=== PATIENT | male | born 2000 | race Caucasian/White ===

== ENCOUNTER 2022-12-08 21:30 | Emergency (ER) | payer BC, SELFPAY ==
[2022-12-08 21:34] VITALS: BP 150/95; PULSE 125; RESP 18; TEMP 36.9; O2SAT 97; BMI 36.3
[2022-12-08 22:01] LABS: IDNOW Serial# 08D9AD1C; Strep A Nucleic Acid Negative (Negative)
[2022-12-08 22:32] LABS: Influenza A PCR NEGATIVE (Negative); Influenza B PCR NEGATIVE (Negative); Resp Syncy Virus RNA Qual PCR NEGATIVE (Negative); SARS COV2 PCR INHOUSE NEGATIVE (Negative)
--- NOTE | 2022-12-08 22:36 | ED.GENADULT ---
HPI - General Adult General Chief complaint: Fever Stated complaint: sore throat Time Seen by Provider: 12/08/22 21:52 Source: patient Mode of arrival: ambulatory Limitations: no limitations History of Present Illness HPI narrative: Patient comes to emergency room complaining of 5 days of sore throat, left ear pain. Patient complaining of subjective fever. Patient denies any chest pain or shortness of breath Related Data Allergies Allergy/AdvReac Type Severity Reaction Status Date / Time animal dander Allergy Itchy Eyes Verified 12/08/22 21:40 mite-Dermatophagoides Allergy Itchy Eyes Verified 12/08/22 21:40 farinae, angie [dust mite - [place]] mold Allergy Itchy Eyes Verified 12/08/22 21:40 pollen extracts Allergy Itching Verified 12/08/22 21:40 Review of Systems Review of Systems: Constitutional : No Weight loss, No Fever, No Chills, No Night Sweats, No Fatigue, No Malaise ENT/Mouth : No Hearing loss, complaining of left Ear Pain, No Nasal Congestion, No Sinus Pain, No Hoarseness, complaining of sore throat, No Rhinorrhea, No Swallowing Difficulty Eyes: No Eye Pain, No Swelling, No Redness, No Foreign Body, No Discharge, No Vision Changes Cardiovascular : No Chest Pain, No SOB, No Dyspnea on Exertion, No Orthopnea, No Edema, No Palpitations Respiratory : No Cough, No Sputum, No Wheezing, No Smoke Exposure, No Dyspnea Gastrointestinal : No Nausea, No Vomiting, No Diarrhea, No Constipation, No abdominal Pain, No Hematochezia, No Melena Genitourinary : no irregular bleeding, No Dysuria, No Urinary Frequency, No Hematuria, No Urinary Incontinence, No Urgency, No Flank Pain, No Urinary Flow Changes, No Hesitancy Musculoskeletal : No joint pain, No Myalgias, No Joint Swelling Skin : No Skin Lesions, No rash Neuro : No Weakness, No Numbness, No Paresthesias, No Loss of Consciousness, No Dizziness, No Headache Psych : No Anxiety/Panic, No Depression, No SI/HI/AH/VH, No Social Issues, Heme/Lymph: No Bruising, No Bleeding,No Lymphadenopathy Endocrine : No Polyuria, No Polydipsia, No Temperature Intolerance PMFSH Social History Social History Advance Directives: No Advance Directives Information Provided: No Physical Exam ED Vital Signs: Vital Signs - 24 hr 12/08/22 21:34 Temperature 98.5 F Pulse Rate 125 H Respiratory Rate 18 Blood Pressure 150/95 H Pulse Oximetry 97 Oxygen Delivery Method Room Air BMI result Body Mass Index 36.3 Const Other: Appearance: Alert. Oriented X3. No acute distress. Eyes: Pupils equal, round and reactive to light. ENT: Erythematous oropharynx, no abscess is visualized, Tympanic membranes bilaterally within normal limits, normal ear canals Neck: Normal inspection. Neck supple. No lymph nodes noted. No crepitus CVS: Normal heart rate and rhythm. Pulses normal. Normal S1 and S2 Respiratory: No respiratory distress. Breath sounds normal. No Wheezing. No rales Abdomen: Soft and nontender. No rigidity. No distention. Skin: Skin warm and dry. Normal skin color. Normal skin turgor. Extremities: No lower extremity edema. No Lacerations. No Rash Neuro: Oriented X 3. No motor deficit. No sensory deficit. Moving all extremities. No slurred speech. CN 2 through 12 grossly intact Psych: calm, cooperative, normal affect Medical Decision Making Medical Decision Making MDM Narrative: Patient tested negative for influenza, RSV, COVID and strep -patient was given 1 dose of p.o. Decadron and viscous lidocaine to help with the symptoms. Lab Data Labs: Lab Results 12/08/22 12/08/22 Range/Units 21:44 21:44 Influenza Type A (PCR) NEGATIVE (Negative) Influenza Type B (PCR) NEGATIVE (Negative) RSV RNA Qual (PCR) NEGATIVE (Negative) SARS-CoV-2 RNA (RT-PCR) NEGATIVE (Negative) S. pyogenes GrpA CARRI Negative (Negative) Discharge Plan Discharge Clinical Impression: Viral pharyngitis Patient Disposition: Home, Self-Care Instructions: Pharyngitis (ED) Additional Instructions: Please follow-up with your primary care physician tomorrow. If you have any worsening or new symptoms, please return to the emergency room or call 911
[2022-12-08] MEDS: Lidocaine HCl Viscous 2 % 15 ML SOLUTION MUCOUS MEM (22:50)
[2022-12-08] MEDS: dexAMETHasone sod phosphate 4 MG/ML VIAL 6 MG IVPUSH (22:57)
[2022-12-08 23:40] VITALS: BP 155/94; PULSE 100; RESP 18; TEMP 35.6; O2SAT 99
== END 2022-12-08 23:43 | disposition home or self-care (01) ==
PROVIDERS: Emergency Provider Emergency Medicine
DX: J02.8 Acute pharyngitis due to other specified organisms (principal); R50.9 Fever, unspecified; Z20.822 Contact with and (suspected) exposure to COVID-19; Z20.828 Contact with and (suspected) exposure to other viral communicable diseases; Z79.899 Other long term (current) drug therapy
CPT/HCPCS: 0241U; 87651; 96374; 99284; J1100

== ENCOUNTER 2024-04-28 13:46 | Emergency (ER) | payer BC, SELFPAY ==
[2024-04-28 13:50] VITALS: BP 125/93; PULSE 106; RESP 20; TEMP 37.2; O2SAT 96; BMI 30.7
--- NOTE | 2024-04-28 13:53 | ED.GENADULT ---
HPI - General Adult General Chief complaint: Nausea/Vomiting/Diarrhea Stated complaint: N/V/D after eating raw pork Time Seen by Provider: 04/28/24 14:22 Source: patient and family Mode of arrival: ambulatory Limitations: no limitations History of Present Illness ED Provider: Francois HPI narrative: 24yo M no PMHx c/o N/V/D x5-6 days accidentally ate raw pork Tuesday. Difficulty keeping fluids down having multiple liquid stools per day. No fevers, chills. Denies bloody or coffee ground emesis, bloody stool. Reports he is pooping water now . Denies CP, sob, fevers, chills, headache, vision changes, weakness, abd pain Related Data Previous Rx's ?Medication ?Instructions ?Recorded ondansetron 4 mg disintegrating 4 mg PO Q6H PRN nausea and 04/28/24 tablet vomiting #14 tabs Allergies Allergy/AdvReac Type Severity Reaction Status Date / Time animal dander Allergy Itchy Eyes Verified 04/28/24 13:55 mite-Dermatophagoides Allergy Itchy Eyes Verified 04/28/24 13:55 farinae, angie [dust mite - [place]] mold Allergy Itchy Eyes Verified 04/28/24 13:55 pollen extracts Allergy Itching Verified 04/28/24 13:55 Review of Systems Review of Systems: Yes all other systems are reviewed and are negative [facility] Past Medical History Attestation statement: The following information was validated with the patient. Source: old records reviewed and nursing notes reviewed Social History Social History Smoked in Last 30 Days: No Use of substances other than those prescribed or required for medical reasons: No Advance Directives: No Advance Directives Information Provided: No Do you have a plan to hurt others: No Plan Physical Exam ED Vital Signs: Vital Signs - 24 hr 04/28/24 13:50 04/28/24 16:06 Temperature 98.9 F 97.7 F Pulse Rate 106 H 90 Respiratory Rate 20 18 Blood Pressure 125/93 H 124/86 Pulse Oximetry 96 96 Oxygen Delivery Method Room Air Room Air BMI result Body Mass Index 30.7 VSS Appearance: Alert.? Oriented X3.? No acute distress.? Head: Normocephalic, atraumatic Eyes: Pupils equal, round and reactive to light.? ENT: Dry mucus membranes CVS: Mildly tachycardic to 100-110bpm Pulses normal.? Respiratory: No respiratory distress.? Breath sounds normal.? Abdomen: Soft and nontender.?Active bowel sounds Skin: Skin warm and dry.?Flushed. ? Extremities: No lower extremity edema.? No calf ttp. 5/5 strength to bilateral upper and lower extremities Neuro: Oriented X 3.? No motor deficit.? No sensory deficit. CN 2-12 intact Course Course Course Narrative: RME performed by Leonarda Morales PA-C. Patient is a 24 year old assigned male at presenting to the emergency department with nausea, vomiting, and diarrhea. Patient states 6 days ago he accidentally ingested undercooked pork and has been having nausea, vomiting, diarrhea, and abdominal pain ever since. Detailed physical exam and review of systems are deferred to the attending pathologist. Labs and stool studies ordered. Patient placed back in the waiting room pending room availability and results. Reevaluation(s) Reevaluation #1: CBC no acute findings needing intervention. Potassium 3.1 oral potassium ordered. Patient is getting IV fluids. No other acute findings on chemistry. UA clean no infection. No indication for abdominal skin no abdominal tenderness on exam. Pending stool sample, re-evaluation. Sign out to Alyce SANTANA Time: 15:44 Reevaluation #2: I Donya Collins PA-C have accepted care of the patient had signed out pending reassessment. Patient has had symptoms for 1 week, nausea vomiting diarrhea. It is thought that he perhaps consumed uncooked pork. His labs are unremarkable, there was no leukocytosis, there were no electrolyte abnormalities, he has not had a bowel movement since earlier today, he has been here for 3 hours. He has yet to give a stool sample, given his symptoms have improved over the past week, in the absence of a leukocytosis, or fever, I plan to p.o. challenge now. Time: 16:52 Reevaluation #3: Patient ate drank feels well is eager for discharge Time: 17:03 Medications Administered Discontinued Medications Generic Name Dose Route Start Last Admin Trade Name Freq PRN Reason Stop Dose Admin Sodium Chloride 1,000 mls @ 999 mls/hr 04/28/24 15:00 04/28/24 16:50 Ns IV 04/28/24 16:00 Infused .Q1H1M THEA Infusion Sodium Chloride 1,000 mls @ 999 mls/hr 04/28/24 15:15 04/28/24 16:50 Ns IV 04/28/24 16:15 Infused .Q1H1M THEA Infusion Potassium Chloride 40 meq 04/28/24 14:46 04/28/24 16:50 Potassium Chloride Packet 20 Meq Packet PO 04/28/24 14:47 40 meq ONCE ONE Administration Medical Decision Making Medical Decision Making [facility] Narrative: 24yo M presenting with N/V/D x5-6 days s/p eating raw pork PE: mildly tachycardic to 100-110. Dry mucus membranes. Benign abdominal exam. Hx and PE concerning for dehydration secondary to foodbourne illness. Less likely, cholera, c. diff, obstruction, acute abdomen, appendicitis, diverticulitis, perf, JUDY, hepatitis Plan: labs, stool panel, IV fluids Differential Diagnosis Differential Diagnoses: The differential diagnosis associated with the presentation includes (Hx and PE concerning for dehydration secondary to foodbourne illness. Less likely, cholera, c. diff, obstruction, acute abdomen, appendicitis, diverticulitis, perf, JUDY, hepatitis) Admission/Observation Consideration of admission/observation: Escalation of care including admission/observation considered Unlikely Lab Data [facility] Lab Attestation statement: I reviewed the patient's lab results. 04/28/24 14:06 04/28/24 14:06 Labs: Lab Results 04/28/24 Range/Units 14:06 WBC 8.3 (4.8-10.8) X10*3/uL RBC 5.86 H (4.60-5.80) X10*6/uL Hgb 16.8 (14.0-18.0) g/dl Hct 47.2 (42.0-52.0) % MCV 80.5 (80.0-98.0) fL MCH 28.7 (27.0-33.0) pg MCHC 35.6 (31.0-36.0) g/dl RDW 11.6 (11.0-16.0) % Plt Count 399 (160-400) X10*3/uL MPV 9.2 L (9.4-12.4) fL Immature Gran % (Auto) 0.4 (0.0-0.4) % Neut % (Auto) 56.4 (45-73) % Lymph % (Auto) 30.0 (20-40) % [place] % (Auto) 11.2 H (2-11) % Eos % (Auto) 1.6 (0-4) % Baso % (Auto) 0.4 (0-2) % Lymph # (Auto) 2.5 (1.2-4.9) X10*3/uL [place] # (Auto) 0.9 (0.1-1.2) X10*3/uL Eos # (Auto) 0.1 (0.0-0.4) X10*3/uL Baso # (Auto) 0.0 (0.0-0.2) X10*3/uL Abs Immat Gran (auto) 0.03 (0.00-0.03) X10*3/uL Absolute Neuts (auto) 4.7 (2.0-8.3) x10*3/uL Absolute Nucleated RBC 0.000 (0.0-0.012) X10*3/uL Nucleated RBC % (auto) 0.0 (0.0-0.2) /100WBC Sodium 137 (135-145) mmol/L Potassium 3.1 L (3.3-5.1) mmol/L Chloride 103 (96-108) mmol/L Carbon Dioxide 23 (22-29) mmol/L Anion Gap 14 (12-20) BUN 8 L (9-16) mg/dL Creatinine 0.89 (0.5-1.4) mg/dL Estim Creat Clear Calc 133.8 Estimated GFR > 60 Random Glucose 232 H (60-115) mg/dL Calcium 8.9 (8.4-10.2) mg/dL Magnesium 1.8 (1.6-2.6) mg/dL Total Bilirubin 0.9 (0.0-1.0) mg/dL AST 14 (5-37) U/L ALT 31 (0-40) U/L Alkaline Phosphatase 75 (39-117) U/L Total Protein 7.1 (6.5-8.0) g/dL Albumin 4.1 (3.5-5.0) g/dL Urine Color Yellow Urine Appearance Clear Urine pH 6.0 (5.0-9.0) Ur Specific [place] 1.015 (1.005-1.025) Urine Protein 30 (1+) H (Neg-Trace) mg/dL Urine Glucose (UA) Negative (Negative) mg/dL Urine Ketones Negative (Negative) mg/dL Urine Blood Negative (Negative) Urine Nitrite Negative (Negative) Ur Leukocyte Esterase Negative (Negative) Urine RBC 0-2 (0-2) /HPF Urine WBC 0-5 (0-5) /HPF Ur Squamous Epith Cells 0-2 (0-2) /HPF Urine Bacteria None Seen (None Seen) Hyaline Casts 3-5 (0-2) /LPF Influenza Type A (PCR) NEGATIVE (Negative) Influenza Type B (PCR) NEGATIVE (Negative) RSV RNA Qual (PCR) NEGATIVE (Negative) SARS-CoV-2 RNA (RT-PCR) NEGATIVE (Negative) External Record Review External record reviewed: Outpatient record Chronic Conditions Patient?s care impacted by: Other (obesity ) Critical Care Time Critical Care Time Critical Care Time: Yes Total Critical Care Time: 35 Attestation: I attest to this time spent taking care of the patient, obtaining history, physical, reviewing labs, imaging, treatment of patients condition +/- specialist/hospitalist consult Discharge Plan Discharge Clinical Impression: Food poisoning Patient Disposition: Still a Patient Instructions: Acute Diarrhea (ED), Food Poisoning (ED) Additional Instructions: Take your medications as prescribed. If you were prescribed antibiotics today, it is important that you take your medication to their entirety, do not skip any doses, do not finish them early. Follow-up with your primary care provider this week. Return to the emergency department with new or worsening symptoms. Such as fevers, chills, chest pain, shortness of breath, nausea, vomiting, dizziness, headache, vision changes, lethargy In case of emergency call 911 Prescriptions: New ondansetron 4 mg tablet,disintegrating 4 mg PO Q6H PRN (Reason: nausea and vomiting) Qty: 14 0RF Referrals: Physician,None [Primary Care Provider] - 2 days Stand Alone Forms: Work/School Release Print Language: Luxem[place]ish
[2024-04-28 14:13] LABS: MANUAL DIFF FLAG NO
[2024-04-28 14:14] LABS: Basophils Percent Auto 0.4 % (0-2); Eosinophils Absolute Auto 0.1 X10*3/uL (0.0-0.4); Eosinophils Percent Auto 1.6 % (0-4); Hematocrit 47.2 % (42.0-52.0); Hemoglobin 16.8 g/dl (14.0-18.0); Imm Gran Abs Auto 0.03 X10*3/uL (0.00-0.03); Imm Gran Pct Auto 0.4 % (0.0-0.4); Lymphocytes Absolute Auto 2.5 X10*3/uL (1.2-4.9); Mean Corpuscular HGB Conc 35.6 g/dl (31.0-36.0); Mean Corpuscular Hemoglobin 28.7 pg (27.0-33.0); Mean Corpuscular Volume 80.5 fL (80.0-98.0); Mean Platelet Volume 9.2 fL (9.4-12.4); Monocytes Absolute Auto 0.9 X10*3/uL (0.1-1.2); Monocytes Percent Auto 11.2 % (2-11); Neutrophils Absolute Auto 4.7 x10*3/uL (2.0-8.3); Neutrophils Percent Auto 56.4 % (45-73); Platelet Count 399 X10*3/uL (160-400); Red Blood Count 5.86 X10*6/uL (4.60-5.80); Red Cell Distribution Width 11.6 % (11.0-16.0); White Blood Count 8.3 X10*3/uL (4.8-10.8)
[2024-04-28 14:15] LABS: Appearance Urine Clear; Color Urine Yellow; Glucose Urine UA Negative (Negative); Leukocyte Esterase Urine Negative (Negative); Nitrite Urine Negative (Negative); Specific Gravity - Urine 1.015 (1.005-1.025); UMIC TRIGGER UACC YES; Urine Blood Negative (Negative); Urine Ketones Negative (Negative); Urine Protein 30 (1+) mg/dL (Neg-Trace)
[2024-04-28 14:21] LABS: Bacteria Urine None Seen (None Seen); RBC Urine 0-2 /HPF (0-2); Squamous Epithelial Cell Urine 0-2 /HPF (0-2); WBC Urine 0-5 /HPF (0-5)
[2024-04-28 14:39] LABS: Alanine Aminotransferase 31 U/L (0-40); Albumin Level 4.1 g/dL (3.5-5.0); Alkaline Phosphatase 75 U/L (39-117); Anion Gap 14 (12-20); Aspartate Amino Transferase 14 U/L (5-37); Bilirubin Total 0.9 mg/dL (0.0-1.0); Blood Urea Nitrogen 8 mg/dL (9-16); Calcium 8.9 mg/dL (8.4-10.2); Carbon Dioxide 23 mmol/L (22-29); Chloride 103 mmol/L (96-108); Creatinine Clr Calc Pharmacy 133.8; Estimated Glomerular Filt Rate > 60; Glucose Random 232 mg/dL (60-115); Magnesium 1.8 mg/dL (1.6-2.6); Potassium 3.1 mmol/L (3.3-5.1); Sodium 137 mmol/L (135-145); Total Protein 7.1 g/dL (6.5-8.0)
[2024-04-28] MEDS: 0.9 % Sodium Chloride 1,000 ML 999 ML IV ×2 (15:13)
[2024-04-28 16:03] LABS: Influenza A PCR NEGATIVE (Negative); Influenza B PCR NEGATIVE (Negative); Resp Syncy Virus RNA Qual PCR NEGATIVE (Negative); SARS COV2 PCR INHOUSE NEGATIVE (Negative)
[2024-04-28 16:06] VITALS: BP 124/86; PULSE 90; RESP 18; TEMP 36.5; O2SAT 96
[2024-04-28] MEDS: Potassium Chloride Packet 20 MEQ PACKET 40 MEQ PO (16:50)
[2024-04-28 17:26] VITALS: BP 125/86; PULSE 86; RESP 18; TEMP 36.6; O2SAT 98
[2024-04-28 17:30] VITALS: BP 125/86; PULSE 86; RESP 18; TEMP 36.6; O2SAT 98
== END 2024-04-28 17:30 | disposition home or self-care (01) ==
PROVIDERS: Physician Assistant Medical; Emergency Provider Emergency Medicine
DX: A05.9 Bacterial foodborne intoxication, unspecified (principal); E87.6 Hypokalemia; Z03.818 Encounter for observation for suspected exposure to other biological agents ruled out; R11.2 Nausea with vomiting, unspecified; R19.7 Diarrhea, unspecified
CPT/HCPCS: 0241U; 80053; 81001; 83735; 85025; 96360; 96361; 99284

== ENCOUNTER 2024-09-09 11:24 | Emergency (ER) | payer BC, SELFPAY ==
--- NOTE | ~2024-09-09 | XR_ITS ---
CLINICAL HISTORY: cough 2 view chest x-ray. Comparison: None Findings: The lungs are adequately expanded. No focal consolidation. No effusion or pneumothorax. Cardiac and mediastinal contours are within normal limits. No acute osseous abnormality Impression: No acute process. This document has been electronically signed by: Dre Pastor MD on 09/09/2024 12:50:31
[2024-09-09 11:32] VITALS: BP 116/74; PULSE 100; RESP 18; TEMP 36.4; O2SAT 95; BMI 32.4
--- NOTE | 2024-09-09 11:32 | ED.URI ---
HPI - URI/Sore Throat General Chief Complaint: Upper Respiratory Symptoms Stated Complaint: cough Time Seen by Provider: 09/09/24 12:55 Source: patient, RN notes reviewed and old records reviewed Mode of arrival: ambulatory History of Present Illness ED Provider: Delia Reid PA-C HPI Narrative: 24-year-old male with no significant past medical history presenting to the ED complaining of productive cough, sore throat, fatigue, headache, congestion x4 days. Admits to taking Tylenol and Motrin at home today. Denies recent travel, sick contacts, CP/SOB. Related Data Previous Rx's ?Medication ?Instructions ?Recorded ondansetron 4 mg disintegrating 4 mg PO Q6H PRN nausea and 04/28/24 tablet vomiting #14 tabs Allergies Allergy/AdvReac Type Severity Reaction Status Date / Time animal dander Allergy Itchy Eyes Verified 09/09/24 11:34 mite-Dermatophagoides Allergy Itchy Eyes Verified 09/09/24 11:34 farinae, angie [dust mite - [place]] mold Allergy Itchy Eyes Verified 09/09/24 11:34 pollen extracts Allergy Itching Verified 09/09/24 11:34 Review of Systems Review of Systems: Yes all other systems are reviewed and are negative Constitutional: Constitutional: Reports as per [facility] Past Medical History Attestation statement: The following information was validated with the patient. Source: old records reviewed Social History Social History Advance Directives: Yes Advance Directives Information Provided: Yes Advance Directives on File: No Physical Exam Vital Signs: Vital Signs: Last Vital Signs Temp 97.6 F 09/09/24 13:15 Pulse 100 09/09/24 13:15 Resp 18 09/09/24 13:15 BP 116/74 09/09/24 13:15 Pulse Ox 95 09/09/24 13:15 O2 Del Method Room Air 09/09/24 13:15 BMI result Body Mass Index 32.4 Const: General: cooperative, healthy appearing and no acute distress Orientation/consciousness: patient oriented x3 Limitations: no limitations HEENT: Head: Yes normal to inspection and Yes atraumatic Ears: hearing grossly normal bilaterally General nose exam: Normal external nose present Face and sinus: Yes normal facial exam Throat: Yes tonsils normal, Yes uvula midline, No peritonsillar mass, Yes posterior oropharynx abnormal (Mild erythema. No exudates), No uvula laterally displaced and No uvular edema Eyes: General: appearance normal, both eyes and all related structures EOM: EOMs intact bilaterally Neck: Neck: Yes normal visual inspection and Yes no meningeal signs Resp: Effort & Inspection: normal respiratory effort, no respiratory distress and no stridor Auscultation: clear to auscultation bilaterally, no crackles and no wheezes Cardio: Rate: regular rate Heart sounds: S1 normal heart sound present and S2 normal heart sound present Skin: Rashes: no rashes Wounds: no wounds Neuro: General: patient oriented x3, tone normal and no meningeal signs Cranial nerves: Yes CN's II-XII intact bilaterally Gait exam (Neuro): Normal gait present Extrem: General: Yes normal to inspection Course Course Course Narrative: This is a Rapid Medical Exam performed in triage by Delia Reid PA-C. Full HPI, ROS and PE to be performed by primary ED provider. 24yo M presenting to the ED c/o prod cough, sore throat, fatigue, EASON, congestion x4 days. Took Tylenol & Motrin today. No travel or sick contacts PE: lungs CTA, uvula midline, +posterior oropharyngeal erythema Plan: SARs, rapid strep, CXR -1300--influenza a positive -chest x-ray unremarkable Results discussed with patient including worrisome signs and symptoms and strict return precautions, and when to return to the emergency department. They verbalized understanding and feel safe for discharge at this time. Medical Decision Making Medical Decision Making [facility] Narrative: 24-year-old male with no significant past medical history presenting to the ED complaining of productive cough, sore throat, fatigue, headache, congestion x4 days. On exam vital signs stable NAD, nontoxic appearing posterior oropharyngeal erythema. Uvula midline. No exudates. Lungs CTA. Concern for viral illness. Rule out pneumonia vs bronchitis. No evidence of [employer]/retropharyngeal abscess Plan: Viral testing, rapid strep, CXR Please refer to course for remaining clinical decision making, interpretation of labs/imaging results, and discussions with consultants and/or family members. Differential Diagnosis Differential Diagnoses: The differential diagnosis associated with the presentation includes As above Lab Data [facility] Lab Attestation statement: I reviewed the patient's lab results. Labs: Lab Results 09/09/24 Range/Units 11:42 Influenza Type A (PCR) POSITIVE A (Negative) Influenza Type B (PCR) NEGATIVE (Negative) RSV RNA Qual (PCR) NEGATIVE (Negative) SARS-CoV-2 RNA (RT-PCR) NEGATIVE (Negative) S. pyogenes GrpA CARRI Negative (Negative) Independent Interpretation I performed an independent interpretation of an: Plain X-Ray Radiology Impression Discussion of test interpretation with radiology: I have reviewed the radiologist's reading. External Record Review External record reviewed: Inpatient record, Office record, Outpatient record, Prior outpatient labs, Prior outpatient radiology, Primary care record and Outside ED record Tests considered The following testing was considered but not selected: As above Prescription Management I considered prescription management with: Pain Medication, Antiviral and Antibiotic Chronic Conditions Patient?s care impacted by: Other Social Determinants Patient?s care significantly limited by Social Determinants of Health including: Other Social Determinant of Health Discharge Plan Discharge Clinical Impression: Influenza Patient Disposition: Home, Self-Care Instructions: Influenza (DC) Additional Instructions: You have influenza a No antibiotics are indicated at this time Make sure you are staying hydrated. Drink plenty of fluids. Rest Alternate Tylenol and Motrin at home as needed for body aches and fever Follow-up with your doctor. If symptoms persist or worsen return to the emergency department *If you are a child & not tolerating liquid or urinating for more than 6 hours, or fevers are uncontrolled with medications at home, return to the emergency department* Prescriptions: No Action ondansetron 4 mg tablet,disintegrating 4 mg PO Q6H PRN (Reason: nausea and vomiting) Qty: 14 0RF Referrals: Physician,None [Primary Care Provider] - Stand Alone Forms: Work/School Release Interventions: ED Discharge Assessment Last Done: 09/09/24 13:15 Discharge Date/Time: 09/09/24 13:15 Print Language: Thai
[2024-09-09 11:54] LABS: IDNOW Serial# 58CA691E; Strep A Nucleic Acid Negative (Negative)
[2024-09-09 12:25] LABS: Influenza A PCR POSITIVE (Negative); Influenza B PCR NEGATIVE (Negative); Resp Syncy Virus RNA Qual PCR NEGATIVE (Negative); SARS COV2 PCR INHOUSE NEGATIVE (Negative)
[2024-09-09 13:15] VITALS: BP 116/74; PULSE 100; RESP 18; TEMP 36.4; O2SAT 95
== END 2024-09-09 13:15 | disposition home or self-care (01) ==
PROVIDERS: Physician Assistant; Emergency Provider Emergency Medicine
DX: J10.1 Influenza due to other identified influenza virus with other respiratory manifestations (principal); R05.9 Cough, unspecified; Z03.818 Encounter for observation for suspected exposure to other biological agents ruled out
CPT/HCPCS: 0241U; 71046; 87651; 99282; 99283

== ENCOUNTER → 2024-09-09 11:32 | Outpatient (BNV) | payer BC, SELFPAY | PROVIDERS: Emergency Provider Emergency Medicine; Visit Provider Radiology Vascular & Interventional Radiology | DX: R05.9 Cough, unspecified (principal) | CPT/HCPCS: 71046 ==

== ENCOUNTER 2024-10-11 09:15 | Outpatient (AMB) | payer BC, SELFPAY ==
[2024-10-11 09:25] VITALS: BP 116/72; PULSE 97; RESP 16; TEMP 37.1; O2SAT 99; BMI 32.9
--- NOTE | 2024-10-11 09:25 | A.OFFPC_ITS ---
Vital Signs 10/11/24 09:25 Height 5 ft 7 in Weight 209 lb 12.8 oz BMI 32.9 BP 116/72 Blood Pressure Location Lt brachial Position Sitting Respiration 16 Pulse 97 Pulse Source Pulse Oximeter Temp 98.8 F Temp Source Oral Pulse Oximetry (%) 99 Oxygen Delivery Method Room Air Intake Visit Reasons: establish care Intake Note: Patient is a new patient here to establish care.. Transferring care from [facility]. Medical records have been requested and have been received. Director Cardiovascular Required: No Accompanied by: Self / Same As Patient Allergies animal dander Allergy (Verified 10/11/24 09:56) Itchy Eyes mite-Dermatophagoides farinae, angie [dust mite - [place]] Allergy (Verified 10/11/24 09:56) Itchy Eyes mold Allergy (Verified 10/11/24 09:56) Itchy Eyes pollen extracts Allergy (Verified 10/11/24 09:56) Itching Medication List - Last Reconciled 10/11/24 by MARSHALL Alvares No Known Home Meds Tobacco use date assessed: 10/11/24 Dental Screening Dental Screen Date: 10/11/24 Did you have a dental visit in the last 12 months?: No Did you have a dental problem in the last 6 months where you did not have access to dental care?: No HPI establish care HPI Details Previous PCP: [facility] Last visit: 4 years Last PE:same Specialist: no OBGYN:n/a Past medical history: DM2 Medications: Family HX: Immune deficiency issues mother, DM2 and mental issues that he is not sure about -father Problem: The patient is a 24-year-old male presenting to establish [facility]. He reports that he has a bump on his foot bottom that hurts on and off. He reports that he feels like something is in his throat intermittently. Reports that in times he feels like he wants to throw up but nothing comes up and when he gets the urge to throw up or dry heave there is a salty taste in his mouth. He denies sob, chest pain, heart palpitation or dizziness The patient reports that he has a bump on his foot, bottom that hurts on and off-will xray the foot [facility] Medical History (Updated 10/22/24 @ 08:57 by MARSHALL Alvares) Geographic tongue Atopic eczema Surgical History No pertinent past surgical history Family History Mother Immune deficiency disorder History of shingles Bunion Father Mental health disorder Suicide FH: mental illness Other Mental illness in member of household Type 2 diabetes mellitus Social History Household Members Other:: Mother Housing: House Alcohol intake: current Alcohol intake frequency: holidays/special occasions only Patient Tobacco Use Status: Never used Tobacco e-Cigarette/Vaping Use: Never Used Second Hand Smoke Exposure: No service: No Current occupational status: employed 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 1. Little interest or pleasure in doing things: not at all 2. Feeling down, depressed, or hopeless: not at all 3. Trouble falling or staying asleep, or sleeping too much: not at all 4. Feeling tired or having little energy: not at all 5. Poor appetite or overeating: not at all 6. Feeling bad about yourself - or that you are a failure or have let yourself or your family down: not at all 7. Trouble concentrating on things, such as reading the newspaper or watching television: not at all 8. Moving or speaking so slowly that other people could have noticed. Or the opposite - being so fidgety or restless that you have been moving around a lot more than usual: not at all 9. Thoughts that you would be better off or of hurting yourself in some way: not at all Total score: 0 Depression Screening Interpretation: Negative Depression Screening Done: Yes 72680 - PHQ-9 Billing: Yes Source: Developed by Drs. Ryan Tavarez, Agatha Bermudez, Allen Ayon and colleagues, with an educational davion from [employer]. Thrive Questionnaire Date Thrive assessed: 10/11/24 I am a: Patient What is your living situation today?: I have a steady place to live Within the past 12 months, did the food you bought not last and you didn't have the money to get more?: Never true Within the past 12 months, did you worry whether your food would run out before you got money to buy more?: Never true Do you have trouble paying for medicines?: No Do you have trouble getting transportation to medical appointments?: No Do you have trouble paying your heating and electricity bill?: No Do you have trouble taking care of your child, family member or friend?: No Do you have trouble with day-to-day activities such as bathing, preparing meals, shopping, managing finances, etc.?: No Are you currently unemployed and looking for a job?: No Are you interested in more education?: No Please select the resources that you would like help with: None Currently or been in a relationship where the following occur: No concerns reported THRIVE Score: 0 AUDIT C Alcohol Use Questionnaire (AUDIT-C) 1. How often do you have a drink containing alcohol?: Monthly or less 2. How many drinks containing alcohol do you have on a typical day when you are drinking?: 1 or 2 3. How often do you have six or more drinks on one occasion?: Never Total Score: 1 NATE-7 AMB Questionnaire NATE-7 Date NATE - 7 assessed: 10/11/24 Feeling nervous, anxious, or on edge: 0 = Not at all Not being able to stop or control worryin = Not at all Worrying too much about different things: 0 = Not at all Trouble relaxin = Not at all Being so restless that it is hard to sit still: 0 = Not at all Becoming easily annoyed or irritable: 0 = Not at all Feeling afraid as if something awful might happen: 0 = Not at all Total NATE-7 score (0-4 normal; 5-9 mild; 10-14 moderate; 15-21 severe): 0 Source: Developed by Drs. Ryan Tavarez, Agatha Bermudez, Allen Ayon and colleagues, with an educational davion from [employer]. NATE-7 Assessment Billing NATE-7 Assessment Tool: NATE-7 Assessment 31509 Review of Systems Const Denies headache(s) Eyes Denies loss of vision ENT Denies vertigo, Denies dizziness, Denies headache(s), Reports nasal congestion and Denies sore throat Card Denies chest pain, Denies leg edema and Denies lightheadedness Resp Denies cough, Denies hemoptysis and Denies wheezing GI Denies abdominal pain, Denies melena, Denies constipation, Denies diarrhea and Denies vomiting Denies dysuria, Denies urinary frequency and Denies urinary urgency Musc Denies arthralgias, Denies joint swelling, Denies numbness and Denies tingling Neuro Denies Abnormal speech present, Denies behavioral changes, Denies vertigo, Denies dizziness, Denies headache(s), Denies loss of vision, Denies memory loss, Denies numbness and Denies tingling Psych Denies anxiety, Denies behavioral changes, Denies depression, Denies memory loss and Denies panic attacks Munir/Lymph Denies easy bleeding and Denies easy bruising Aller/Immun Denies wheezing Physical exam (Primary Care) Vital Signs: Last Vital Signs Temp 98.8 F 10/11/24 09:25 Pulse 97 10/11/24 09:25 Resp 16 10/11/24 09:25 BP 116/72 10/11/24 09:25 Pulse Ox 99 10/11/24 09:25 Oxygen Delivery Method Room Air 10/11/24 09:25 BMI result Body Mass Index 32.9 Tobacco/Smoking Status: Tobacco use Status Tobacco use date assessed 10/11/24 10/11/24 09:33 Patient Tobacco Use Status Never used Tobacco 10/11/24 09:35 e-Cigarette/Vaping Use Never Used 10/11/24 09:35 PHQ-9: PHQ-9 Score PHQ-9: Total score 0 10/11/24 10:07 Depression Screening Interpretation: Negative Thrive Assessment: Date of Thrive Assessment Date Thrive assessed 10/11/24 10/11/24 09:38 Currently or been in a relationship where the following occur: No concerns reported Const General: healthy appearing, no acute distress, alert and awake Nutritional Appearance: well nourished Orientation/consciousness: oriented to person, oriented to place and oriented to time HENMT Ears: TM's normal bilaterally General nose exam: Abnormal mucous membranes and turbinates present boggy and erythematous Mouth: tongue abnormal geographic, with white coating and with plaques Throat: Yes posterior oropharynx abnormal and Yes postnasal drainage Eyes Conjunctivae: conjunctivae normal Sclerae: sclerae normal Pupils: Equal, round and reactive pupils present Neck Neck: Yes no lymphadenopathy and Yes no JVD Thyroid: Thyroid normal Carotids: no bruits Resp Effort & Inspection: normal respiratory effort and not tachypneic Auscultation: no crackles, no rales, no rhonchi and no wheezes Cardio Rate: regular rate Rhythm: regular rhythm Heart sounds: no murmurs and normal S1 and S2 GI Palpation (GI): Soft to palpation, nontender, no hepatomegaly and no splenomegaly Auscultation: normal bowel sounds Skin General skin exam: no rashes or lesions noted and dry skin Neuro General: oriented to person, oriented to place and oriented to time Cranial nerves: Yes Equal, round and reactive pupils present Speech: No Abnormal speech present Gait exam (Neuro): Normal gait present Motor exam (neuro): no tremor noted Extrem Right upper extremity: full ROM Left upper extremity: full ROM Right lower extremity: full ROM; no edema Left lower extremity: full ROM; no edema Psych Mental Status: mental status grossly normal Speech and movement: Normal speech and movement present Affect: normal affect Attitude: cooperative Thought process: Normal thought process present Coding Level of Care Code New Pt Level 4 (87145) Diagnoses Rhinosinusitis J32.9 Thrush B37.0 Nasal congestion R09.81 Type 2 diabetes mellitus with other specified complication, without long-term current use of insulin E11.69 Diabetes mellitus type: type 2 Diabetes mellitus [facility] insulin use: without [facility] use Diabetes mellitus complication status: with other specified complication Additional Codes NATE-7 Assessment Billing - NATE-7 Assessment Tool: NATE-7 Assessment 53385 ([id number]) PHQ-9 - 87943 - PHQ-9 Billing: Yes ([id number]) Time Spent (min) 39 Assessment & Plan Assessment & Plan (1) Rhinosinusitis: Code(s): J32.9 - Chronic sinusitis, unspecified Category: Medical Plan: Augmentin bid x 10 days. 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 Panel Fast 10/15/24 Z. - Encounter for general adult medical examination without abnormal findings Lipid Panel 10/15/24 Z. - Encounter for general adult medical examination without abnormal findings Glucose Fasting 10/15/24 Z. - Encounter for general adult medical examination without abnormal findings UA CC w/rflx Micro + Cult 10/15/24 Z. - Encounter for general adult medical examination without abnormal findings TSH reflex Free T4 10/15/24 Z. - Encounter for general adult medical examination without abnormal findings Complete Blood Count Auto Diff 10/15/24 Z. - Encounter for general adult medical examination without abnormal findings Vitamin D 25-OH Total 10/15/24 Z. - Encounter for general adult medical examination without abnormal findings Hemoglobin A1c 10/15/24 Z00.00 - Encounter for general adult medical exa mination without abnormal findings Medications: New fluticasone propionate 50 mcg/actuation administer into each nostril 1 spray intranasal BID 16 grams 0RF R09.81 - Nasal congestion nystatin 6ml orally (swish around mouth and retain for as long as possible before swal lowing four times daily for 14 days 100,000 units PO QID 473 mL 0RF 14 days B37.0 - Candidal stomatitis amoxicillin-pot clavulanate 875-125 mg 1 tab PO BID 20 tabs 0RF 10 days J32.9 - Chronic sinusitis, unspecified Discontinued ondansetron Discontinued Reason: Patient no longer taking 4 mg PO Q6H PRN 14 tabs 0RF nausea and vomiting
== END 2024-10-11 10:34 | disposition home or self-care (01) ==
DX: J32.9 Chronic sinusitis, unspecified (principal); B37.0 Candidal stomatitis; R09.81 Nasal congestion; E11.69 Type 2 diabetes mellitus with other specified complication

== ENCOUNTER → 2024-10-11 09:15 | Outpatient (BNVA) | payer BC, SELFPAY | DX: Z76.89 Persons encountering health services in other specified circumstances (principal); J32.9 Chronic sinusitis, unspecified; B37.0 Candidal stomatitis; R09.81 Nasal congestion; E11.69 Type 2 diabetes mellitus with other specified complication; Z79.84 Long term (current) use of oral hypoglycemic drugs | CPT/HCPCS: 96127 ==

== ENCOUNTER 2024-10-15 06:49 | Outpatient (REF) | payer BC, SELFPAY ==
[2024-10-15 10:11] LABS: Appearance Urine Clear; Color Urine Yellow; Glucose Urine UA >=1000 mg/dL (Negative); Leukocyte Esterase Urine Negative (Negative); Nitrite Urine Negative (Negative); UMIC TRIGGER UACC YES; Urine Blood Negative (Negative); Urine Ketones Negative (Negative); Urine Protein Trace mg/dL (Neg-Trace)
[2024-10-15 10:14] LABS: Bacteria Urine None Seen (None Seen); Hyaline Casts Urine 0-2 /LPF (0-2); RBC Urine 0-2 /HPF (0-2); Squamous Epithelial Cell Urine 0-2 /HPF (0-2); WBC Urine 0-5 /HPF (0-5)
[2024-10-15 10:33] LABS: MANUAL DIFF FLAG NO
[2024-10-15 10:37] LABS: Basophils Percent Auto 0.6 % (0-2); Eosinophils Absolute Auto 0.1 X10*3/uL (0.0-0.4); Eosinophils Percent Auto 1.4 % (0-4); Hematocrit 47.9 % (42.0-52.0); Hemoglobin 16.4 g/dl (14.0-18.0); Imm Gran Abs Auto 0.03 X10*3/uL (0.00-0.03); Imm Gran Pct Auto 0.4 % (0.0-0.4); Lymphocytes Absolute Auto 3.1 X10*3/uL (1.2-4.9); Lymphocytes Percent Auto 42.1 % (20-40); Mean Corpuscular HGB Conc 34.2 g/dl (31.0-36.0); Mean Corpuscular Hemoglobin 28.3 pg (27.0-33.0); Mean Corpuscular Volume 82.7 fL (80.0-98.0); Mean Platelet Volume 9.2 fL (9.4-12.4); Monocytes Absolute Auto 0.5 X10*3/uL (0.1-1.2); Monocytes Percent Auto 6.7 % (2-11); Neutrophils Absolute Auto 3.5 x10*3/uL (2.0-8.3); Neutrophils Percent Auto 48.8 % (45-73); Platelet Count 389 X10*3/uL (160-400); Red Blood Count 5.79 X10*6/uL (4.60-5.80); Red Cell Distribution Width 12.1 % (11.0-16.0); White Blood Count 7.3 X10*3/uL (4.8-10.8)
[2024-10-15 10:56] LABS: Estimated Average Glucose 223 mg/dL; Hemoglobin A1C 332.3026 umol/L; Hemoglobin A1c % 9.4 % (<6.0)
[2024-10-15 11:18] LABS: Alanine Aminotransferase 54 U/L (0-40); Albumin Level 4.5 g/dL (3.5-5.0); Alkaline Phosphatase 79 U/L (39-117); Anion Gap 13 (12-20); Aspartate Amino Transferase 30 U/L (5-37); Bilirubin Total 0.5 mg/dL (0.0-1.0); Blood Urea Nitrogen 11 mg/dL (9-16); Calcium 9.5 mg/dL (8.4-10.2); Carbon Dioxide 25 mmol/L (22-29); Chloride 104 mmol/L (96-108); Cholesterol 198 mg/dL (<200); Estimated Glomerular Filt Rate > 60; Glucose Fasting 201 mg/dL (60-99); HDL Cholesterol 43 mg/dL (>40); LDL Cholesterol Calculated 103 mg/dL (<100); Potassium 3.8 mmol/L (3.3-5.1); Sodium 138 mmol/L (135-145); TSH reflex Free T4 3.42 uIU/mL (0.32-4.0); Total Protein 7.8 g/dL (6.5-8.0); Triglycerides 260 mg/dL (<150); Vitamin D 25-OH Total 49.8 ng/mL (>30)
== END 2024-10-15 06:50 | disposition home or self-care (01) ==
LOC: HO.HMGCLDS 06:49
DX: Z00.00 Encounter for general adult medical examination without abnormal findings (principal); Z13.6 Encounter for screening for cardiovascular disorders; Z13.1 Encounter for screening for diabetes mellitus
CPT/HCPCS: 36415; 80053; 80061; 81001; 82306; 83036; 84443; 85025

== ENCOUNTER 2024-11-22 10:53 | Outpatient (AMB) | payer BC, SELFPAY ==
[2024-11-22 10:56] VITALS: BP 108/76; PULSE 106; RESP 14; TEMP 37.2; O2SAT 97; BMI 33.7
--- NOTE | 2024-11-22 10:56 | MHC.PC.OV ---
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: No Accompanied by: Self / Same As Patient Allergies animal dander Allergy (Verified 11/22/24 11:19) Itchy Eyes mite-Dermatophagoides farinae, angie [dust mite - [place]] Allergy (Verified 11/22/24 11:19) Itchy Eyes mold Allergy (Verified 11/22/24 11:19) Itchy Eyes pollen extracts Allergy (Verified 11/22/24 11:19) Itching Medication List - Last Reconciled 11/22/24 by MARSHALL Alavres No Known Home Meds Tobacco use date assessed: 11/22/24 Dental Screening Dental Screen Date: 11/22/24 Did you have a dental visit in the last 12 months?: No Did you have a dental problem in the last 6 months where you did not have access to dental care?: No Was dental information given to patient?: No HPI annual physical HPI Details The patient is a 24-year-old male that presented for annual physical Dentist: not in awhile Eye: up to date Snellen: Right: Left: Corrected vision: glasses STI screening: Colonoscopy: Pap Smer: PHQ-9: Flu: COVID: x2 Tdap: Given in office today Diet: eats a lot of cabs, breads, mach and cheeze, pizza every day Exercise: little walking on and off The patient is a 24-year-old male presenting for annual physical There is concerns regarding his type 2 diabetes mellitus. He was initially started on Metformin, but discontinued due to intolerable gastrointestinal side effects. His Hemoglobin A1c level is notably elevated at 9.4%, raising concerns for possible complications, including diabetic emergencies. The patient has a dietary pattern high in carbohydrates and sugary drinks, contributing to his glycemic control issues. He is currently not consuming alcohol. Furthermore, the patient presents with nasal symptoms related to allergic rhinitis and oral hygiene problems, which have both been a source of discomfort. He has not engaged in recent dental care, resulting in persistent oral health issues. [facility] Medical History (Updated 11/22/24 @ 17:17 by MARSHALL Alvares) Geographic tongue Atopic eczema Surgical History No pertinent past surgical history Family History Mother Immune deficiency disorder History of shingles Bunion Father Mental health disorder Suicide FH: mental illness Other Mental illness in member of household Type 2 diabetes mellitus Social History Household Members Other:: Mother Housing: House Alcohol intake: current Alcohol intake frequency: holidays/special occasions only Patient Tobacco Use Status: Never used Tobacco e-Cigarette/Vaping Use: Never Used Second Hand Smoke Exposure: No service: No Current occupational status: employed 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 1. Little interest or pleasure in doing things: not at all 2. Feeling down, depressed, or hopeless: not at all 3. Trouble falling or staying asleep, or sleeping too much: not at all 4. Feeling tired or having little energy: not at all 5. Poor appetite or overeating: not at all 6. Feeling bad about yourself - or that you are a failure or have let yourself or your family down: not at all 7. Trouble concentrating on things, such as reading the newspaper or watching television: not at all 8. Moving or speaking so slowly that other people could have noticed. Or the opposite - being so fidgety or restless that you have been moving around a lot more than usual: not at all 9. Thoughts that you would be better off or of hurting yourself in some way: not at all Total score: 0 Depression Screening Interpretation: Negative Depression Screening Done: Yes Source: Developed by Drs. Ryan Tavarez, Agatha Bermudez, Allen Ayon and colleagues, with an educational davion from [employer]. Thrive Questionnaire Date Thrive assessed: 11/22/24 I am a: Patient What is your living situation today?: I have a steady place to live Within the past 12 months, did the food you bought not last and you didn't have the money to get more?: Never true Within the past 12 months, did you worry whether your food would run out before you got money to buy more?: Never true Do you have trouble paying for medicines?: No Do you have trouble getting transportation to medical appointments?: No Do you have trouble paying your heating and electricity bill?: No Do you have trouble taking care of your child, family member or friend?: No Do you have trouble with day-to-day activities such as bathing, preparing meals, shopping, managing finances, etc.?: No Are you currently unemployed and looking for a job?: No Are you interested in more education?: No Please select the resources that you would like help with: None Currently or been in a relationship where the following occur: No concerns reported THRIVE Score: 0 AUDIT C Alcohol Use Questionnaire (AUDIT-C) 1. How often do you have a drink containing alcohol?: Monthly or less 2. How many drinks containing alcohol do you have on a typical day when you are drinking?: 1 or 2 3. How often do you have six or more drinks on one occasion?: Never Total Score: 1 NATE-7 AMB Questionnaire NATE-7 Date NATE - 7 assessed: 11/22/24 Feeling nervous, anxious, or on edge: 0 = Not at all Not being able to stop or control worryin = Not at all Worrying too much about different things: 1 = Several days Trouble relaxin = Not at all Being so restless that it is hard to sit still: 0 = Not at all Becoming easily annoyed or irritable: 0 = Not at all Feeling afraid as if something awful might happen: 0 = Not at all Total NATE-7 score (0-4 normal; 5-9 mild; 10-14 moderate; 15-21 severe): 1 Source: Developed by Drs. Ryan Tavarez, Agatha Bermudez, Allen Ayon and colleagues, with an educational davion from [employer]. Review of Systems Const Denies headache(s) Eyes Denies loss of vision ENT Denies vertigo, Denies dizziness, Denies headache(s), Reports nasal congestion (Intermittent), Denies sore throat and Reports other (White patches on tongue improved, history of geographic tongue) Card Denies chest pain, Denies leg edema and Denies lightheadedness Resp Denies cough, Denies hemoptysis and Denies wheezing GI Denies abdominal pain, Denies melena, Denies constipation, Denies diarrhea and Denies vomiting Denies dysuria, Denies urinary frequency and Denies urinary urgency Musc Denies arthralgias, Denies joint swelling, Denies numbness and Denies tingling Neuro Denies Abnormal speech present, Denies behavioral changes, Denies vertigo, Denies dizziness, Denies headache(s), Denies loss of vision, Denies memory loss, Denies numbness and Denies tingling Psych Denies anxiety, Denies behavioral changes, Denies depression, Denies memory loss and Denies panic attacks Munir/Lymph Denies easy bleeding and Denies easy bruising Aller/Immun Denies wheezing Physical exam (Primary Care) Vital Signs: Last Vital Signs Temp 98.9 F 11/22/24 10:56 Pulse 106 H 11/22/24 10:56 Resp 14 11/22/24 10:56 BP 108/76 11/22/24 10:56 Pulse Ox 97 11/22/24 10:56 Oxygen Delivery Method Room Air 11/22/24 10:56 BMI result Body Mass Index 33.7 Tobacco/Smoking Status: Tobacco use Status Tobacco use date assessed 11/22/24 11/22/24 10:58 Patient Tobacco Use Status Never used Tobacco 11/22/24 10:58 e-Cigarette/Vaping Use Never Used 11/22/24 10:58 PHQ-9: PHQ-9 Score PHQ-9: Total score 0 11/22/24 11:41 Depression Screening Interpretation: Negative Thrive Assessment: Date of Thrive Assessment Date Thrive assessed 11/22/24 11/22/24 10:58 Currently or been in a relationship where the following occur: No concerns reported Const General: healthy appearing, no acute distress, alert and awake Nutritional Appearance: well nourished Orientation/consciousness: oriented to person, oriented to place and oriented to time HENMT Ears: TM's normal bilaterally General nose exam: Normal nasal mucous membranes and turbinates present Eyes Conjunctivae: conjunctivae normal Sclerae: sclerae normal Pupils: Equal, round and reactive pupils present Neck Neck: Yes no lymphadenopathy and Yes no JVD Thyroid: Thyroid normal Carotids: no bruits Resp Effort & Inspection: normal respiratory effort and not tachypneic Auscultation: no crackles, no rales, no rhonchi and no wheezes Cardio Rate: regular rate Rhythm: regular rhythm Heart sounds: no murmurs and normal S1 and S2 GI Palpation (GI): Soft to palpation, nontender, no hepatomegaly and no splenomegaly Auscultation: normal bowel sounds Skin General skin exam: no rashes or lesions noted and dry skin Neuro General: oriented to person, oriented to place and oriented to time Cranial nerves: Yes Equal, round and reactive pupils present Speech: No Abnormal speech present Gait exam (Neuro): Normal gait present Motor exam (neuro): no tremor noted Extrem Right upper extremity: full ROM Left upper extremity: full ROM Right lower extremity: full ROM; no edema Left lower extremity: full ROM; no edema Psych Mental Status: mental status grossly normal Speech and movement: Normal speech and movement present Affect: normal affect Attitude: cooperative Thought process: Normal thought process present Immunizations Boostrix Tdap 2.5 Lf unit-8 mcg-5 Lf/0.5 mL intramuscular syringe Performing Provider: MARSHALL Alvares [facility] Administered by: Franny Damon CMA on 11/22/24 11:47 Dose Route Admin Location Dispensed Lot Number Expiration Date [facility] Conference Reservationist 0.5 mL IM Left Deltoid 0.5 mL [id number] 03/19/27 11913-148-66 [employer] VIS Given Date VIS Provided VIS Publication Date 11/22/24 Single Vaccine 24 Eligibility Eligibility Date Funding Source Not [facility] Eligible 11/22/24 Private Results Reviewed Results Reviewed: Laboratory Tests 10/15/24 06:57 WBC 7.3 RBC 5.79 Hgb 16.4 Hct 47.9 MCV 82.7 MCH 28.3 Plt Count 389 MPV 9.2 L Sodium 138 Potassium 3.8 D Chloride 104 Carbon Dioxide 25 Anion Gap 13 BUN 11 Creatinine 0.79 Estimated GFR > 60 Fasting Glucose 201 H Estimat Average Glucose 223 Hemoglobin A1c % 9.4 H Calcium 9.5 D Total Bilirubin 0.5 AST 30 ALT 54 H Alkaline Phosphatase 79 Total Protein 7.8 Albumin 4.5 Triglycerides 260 H Cholesterol 198 LDL Cholesterol, Calc 103 H HDL Cholesterol 43 25-OH Vitamin D Total 49.8 TSH 3.42 Urine Color Yellow Urine Appearance Clear Urine pH 6.0 Ur Specific [place] 1.020 Urine Protein Trace Urine Glucose (UA) >=1000 H Urine Ketones Negative Urine Blood Negative Urine Nitrite Negative Ur Leukocyte Esterase Negative Urine RBC 0-2 Urine WBC 0-5 Ur Squamous Epith Cells 0-2 Urine Bacteria None Seen Hyaline Casts 0-2 Coding Level of Care Code Est Pt Prev Care [id number]([id number]) Diagnoses Annual physical exam Z00.00 Type 2 diabetes mellitus with other specified complication, without long-term current use of insulin E11.69 Diabetes mellitus type: type 2 Diabetes mellitus long-term insulin use: without intermediate project manager use Diabetes mellitus complication status: with other specified complication Mixed hypercholesterolemia and hypertriglyceridemia E78.2 Elevated liver enzymes R74.8 Seasonal allergic rhinitis due to pollen J30.1 Allergic rhinitis trigger: pollen Allergic rhinitis seasonality: seasonal Time Spent (min) 36 Assessment & Plan Assessment & Plan (1) Annual physical exam: Code(s): Z00.00 - Encounter for general adult medical examination without abnormal findings Category: Medical (2) Diabetes: Code(s): E11.9 - Type 2 diabetes mellitus without complications Category: Medical Qualifiers: Diabetes mellitus type: type 2 Diabetes mellitus intermediate project manager insulin use: without intermediate project manager use Diabetes mellitus complication status: with other specified complication Qualified Code(s): E11.69 - Type 2 diabetes mellitus with other specified complication (3) Mixed hypercholesterolemia and hypertriglyceridemia: Code(s): E78.2 - Mixed hyperlipidemia Category: Medical (4) Elevated liver enzymes: Code(s): R74.8 - Abnormal levels of other serum enzymes Category: Medical (5) Allergic rhinitis: Code(s): J30.9 - Allergic rhinitis, unspecified Category: Medical Qualifiers: Allergic rhinitis trigger: pollen Allergic rhinitis seasonality: seasonal Qualified Code(s): J30.1 - Allergic rhinitis due to pollen Plan Switch the patient to Metformin extended-release to address diarrhea and improve compliance. He will take 2000 mg four 500 mg tablets) once daily, observing any side effects and monitoring blood sugar with follow-up in three months. Reinforce importance of dietary changes to control elevated A1c and mild hypertriglyceridemia. Recommend increased physical activity. For allergic rhinitis, control allergens in the workplace environment. Advise on dental hygiene and regular check-ups. Vaccination status reviewed with the suggested Tdap which was given in office. ALT slightly elevated refrain from acetaminophen or alcohol. We will recheck labs in 3 months. Discussed with the patient to contact office if he is unable to tolerate metformin XR, so another medication could be tried. Patient was informed and verbally consented to the use of an ambient scribe for clinic note documentation during this visit. Orders: Orders Lipid Panel 3 Months . - Type 2 diabetes mellitus with other specified complication, E78.2 - Mixed hyperlipidemia, R74.8 - Abnormal levels of other serum enzymes, Z00.00 - Encounter for general adult medical examination without abnormal findings Vitamin D 25-OH Total 3 Months . - Type 2 diabetes mellitus with other specified complication, E78.2 - Mixed hyperlipidemia, R74.8 - Abnormal levels of other serum enzymes, Z00.00 - Encounter for general adult medical examination without abnormal findings Complete Blood Count Auto Diff 3 Months . - Type 2 diabetes mellitus with other specified complication, E78.2 - Mixed hyperlipidemia, R74.8 - Abnormal levels of other serum enzymes, Z00.00 - Encounter for general adult medical examination without abnormal findings TDaP Immunization Today Z23 - Encounter for immunization Glucose Fasting 3 Months . - Type 2 diabetes mellitus with other specified complication, E78.2 - Mixed hyperlipidemia, R74.8 - Abnormal levels of other serum enzymes, Z00.00 - Encounter for general adult medical examination without abnormal findings Hemoglobin A1c 3 Months . - Type 2 diabetes mellitus with other specified complication, E78.2 - Mixed hyperlipidemia, R74.8 - Abnormal levels of other serum enzymes, Z00.00 - Encounter for general adult medical examination without abnormal findings Comprehensive [place]. Panel Fast 3 Months . - Type 2 diabetes mellitus with other specified complication, E78.2 - Mixed hyperlipidemia, R74.8 - Abnormal levels of other serum enzymes, Z00.00 - Encounter for general adult medical examination without abnormal findings UA CC w/rflx Micro + Cult 3 Months . - Type 2 diabetes mellitus with other specified complication, E78.2 - Mixed hyperlipidemia, R74.8 - Abnormal levels of other serum enzymes, Z00.00 - Encounter for general adult medical examination without abnormal findings TSH reflex Free T4 3 Months . - Type 2 diabetes mellitus with other specified complication, E78.2 - Mixed hyperlipidemia, R74.8 - Abnormal levels of other serum enzymes, Z00.00 - Encounter for general adult medical examination without abnormal findings Medications: New metformin ER 2,000 mg (4 x 500 mg) PO DAILY 30 days 120 tabs 3RF Patient Instructions: - Take Metformin extended-release 2000 mg once daily as prescribed. - Monitor blood sugar levels regularly and report any issues. - Follow a diet low in carbohydrates and sugars. - Increase physical activity, starting with regular walking. - Schedule dental check-ups for better oral hygiene. - Control allergens in the workplace to minimize rhinitis symptoms. - Follow up with labs and return for a check-up in three months.
== END 2024-11-22 11:51 | disposition home or self-care (01) ==
LOC: HO.HMCH 10:54
DX: Z00.00 Encounter for general adult medical examination without abnormal findings (principal); E11.69 Type 2 diabetes mellitus with other specified complication; E78.2 Mixed hyperlipidemia; R74.8 Abnormal levels of other serum enzymes; J30.1 Allergic rhinitis due to pollen; Z23 Encounter for immunization

== ENCOUNTER → 2024-11-22 10:53 | Outpatient (BNVA) | payer BC, SELFPAY | DX: Z00.00 Encounter for general adult medical examination without abnormal findings (principal); Z23 Encounter for immunization; E11.69 Type 2 diabetes mellitus with other specified complication; E78.2 Mixed hyperlipidemia; R74.8 Abnormal levels of other serum enzymes; J30.1 Allergic rhinitis due to pollen | CPT/HCPCS: 90471; 90715; 96127 ==

== ENCOUNTER 2025-02-19 07:45 | Outpatient (REF) | payer BC, SELFPAY ==
[2025-02-19 10:14] LABS: MANUAL DIFF FLAG NO
[2025-02-19 10:18] LABS: Hematocrit 43.5 % (42.0-52.0); Hemoglobin 15.1 g/dl (14.0-18.0); Imm Gran Abs Auto 0.03 X10*3/uL (0.00-0.03); Imm Gran Pct Auto 0.3 % (0.0-0.4); Lymphocytes Absolute Auto 3.0 X10*3/uL (1.2-4.9); Mean Corpuscular HGB Conc 34.7 g/dl (31.0-36.0); Mean Corpuscular Hemoglobin 28.4 pg (27.0-33.0); Mean Corpuscular Volume 81.9 fL (80.0-98.0); NRBC Abs Auto 0.000 X10*3/uL (0.0-0.012); NRBC Pct Auto 0.0 /100WBC (0.0-0.2); Platelet Count 344 X10*3/uL (160-400); Red Blood Count 5.31 X10*6/uL (4.60-5.80); White Blood Count 9.2 X10*3/uL (4.8-10.8)
[2025-02-19 10:27] LABS: Hemoglobin A1C 249.4760 umol/L; Total Hemoglobin (HGBA1C) 4010.6517 umol/L
[2025-02-19 11:01] LABS: Alanine Aminotransferase 58 U/L (0-40); Albumin Level 4.9 g/dL (3.5-5.0); Alkaline Phosphatase 81 U/L (39-117); Anion Gap 13 (12-20); Aspartate Amino Transferase 36 U/L (5-37); Blood Urea Nitrogen 16 mg/dL (9-16); Calcium 9.6 mg/dL (8.4-10.2); Carbon Dioxide 24 mmol/L (22-29); Chloride 104 mmol/L (96-108); Cholesterol 159 mg/dL (<200); Estimated Glomerular Filt Rate > 60; HDL Cholesterol 42 mg/dL (>40); Potassium 4.1 mmol/L (3.3-5.1); Sodium 137 mmol/L (135-145); Total Protein 7.9 g/dL (6.5-8.0); Triglycerides 233 mg/dL (<150)
[2025-02-19 11:19] LABS: Appearance Urine Clear; Glucose Urine UA Negative (Negative); PH 5.5 (5.0-9.0); Specific Gravity - Urine 1.020 (1.005-1.025)
== END 2025-02-19 07:46 | disposition home or self-care (01) ==
LOC: HO.HMGCLDS 07:45
DX: Z00.00 Encounter for general adult medical examination without abnormal findings (principal); E11.69 Type 2 diabetes mellitus with other specified complication; E78.2 Mixed hyperlipidemia; R74.8 Abnormal levels of other serum enzymes
CPT/HCPCS: 36415; 80053; 80061; 81003; 82306; 83036; 84443; 85025

== ENCOUNTER 2025-02-26 11:15 | Outpatient (AMB) | payer BC, SELFPAY ==
--- NOTE | 2025-02-26 11:26 | MHC.PC.OV ---
Vital Signs 02/26/25 11:27 Height 5 ft 7 in Weight 219 lb BMI 34.3 BP 130/70 Blood Pressure Location Lt brachial Position Sitting Respiration 18 Pulse 97 Pulse Source Pulse Oximeter Temp 97 F Temp Source Temporal Artery Scan Pulse Oximetry (%) 96 Oxygen Delivery Method Room Air Intake Visit Reasons: DM/HLD Associate Justice Required: No Accompanied by: Self / Same As Patient Allergies animal dander Allergy (Verified 03/25/25 02:18) Itchy Eyes mite-Dermatophagoides farinae, angie (dust mite - [place]) Allergy (Verified 03/25/25 02:18) Itchy Eyes mold Allergy (Verified 03/25/25 02:18) Itchy Eyes pollen extracts Allergy (Verified 03/25/25 02:18) Itching Pork/Porcine Containing Products Adverse Reaction (Severe, Verified 03/25/25 02:18) Vomiting Medication List - Last Reconciled 03/25/25 by MARSHALL Alvares empagliflozin (Jardiance) 10 mg PO DAILY metformin ER 2,000 mg (4 x 500 mg) PO DAILY 30 days Tobacco use date assessed: 02/26/25 Dental Screening Dental Screen Date: 02/26/25 Did you have a dental visit in the last 12 months?: Yes Did you have a dental problem in the last 6 months where you did not have access to dental care?: No Was dental information given to patient?: Patient has dentist HPI DM/HLD HPI Details The patient is a 24-year-old male presenting for follow-up on hyperglycemia management and evaluation of elevated liver enzymes. The patient has been managing hyperglycemia with metformin, reporting a decrease A1c levels from 9.4 to 7.8%. He has made dietary changes, including eliminating juice and soda, and increasing water intake to two liters daily. The patient has experienced episodes of vomiting, during which he did not take metformin, as advised due to dehydration concerns. The patient reports elevated liver enzymes, though he is asymptomatic with no abdominal pain. He has a sensation of a bruise on the right side, which occurs intermittently without associated pain. The patient has a history of dental caries, having recently undergone a root canal and cap placement. He is scheduled for further dental procedures, including deep cleaning and additional fillings. The patient reports previous foot pain, which has resolved with a change in footwear. He still plans to consult with podiatry due to concerns about joint-related bubbles. 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 [facility] Medical History Geographic tongue Atopic eczema Surgical History No pertinent past surgical history Family History Mother Immune deficiency disorder History of shingles Bunion Father Mental health disorder Suicide FH: mental illness Other Mental illness in member of household Type 2 diabetes mellitus Social History Household Members Other:: Mother Housing: House Alcohol intake: current Alcohol intake frequency: holidays/special occasions only Patient Tobacco Use Status: Never used Tobacco e-Cigarette/Vaping Use: Never Used Second Hand Smoke Exposure: No service: No Current occupational status: employed 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 1. Little interest or pleasure in doing things: not at all 2. Feeling down, depressed, or hopeless: not at all 3. Trouble falling or staying asleep, or sleeping too much: not at all 4. Feeling tired or having little energy: not at all 5. Poor appetite or overeating: not at all 6. Feeling bad about yourself - or that you are a failure or have let yourself or your family down: not at all 7. Trouble concentrating on things, such as reading the newspaper or watching television: not at all 8. Moving or speaking so slowly that other people could have noticed. Or the opposite - being so fidgety or restless that you have been moving around a lot more than usual: not at all 9. Thoughts that you would be better off or of hurting yourself in some way: not at all Total score: 0 Depression Screening Interpretation: Negative Depression Screening Done: Yes Source: Developed by Drs. Ryan Tavarez, Agatha BermudezAllen and colleagues, with an educational davion from [employer]. Thrive Questionnaire Date Thrive assessed: 02/26/25 I am a: Patient What is your living situation today?: I have a steady place to live Within the past 12 months, did the food you bought not last and you didn't have the money to get more?: Never true Within the past 12 months, did you worry whether your food would run out before you got money to buy more?: Never true Do you have trouble paying for medicines?: No Do you have trouble getting transportation to medical appointments?: No Do you have trouble paying your heating and electricity bill?: No Do you have trouble taking care of your child, family member or friend?: No Do you have trouble with day-to-day activities such as bathing, preparing meals, shopping, managing finances, etc.?: No Are you currently unemployed and looking for a job?: No Are you interested in more education?: No Please select the resources that you would like help with: None Currently or been in a relationship where the following occur: No concerns reported THRIVE Score: 0 AUDIT C Alcohol Use Questionnaire (AUDIT-C) 1. How often do you have a drink containing alcohol?: Never 3. How often do you have six or more drinks on one occasion?: Never Total Score: 0 NATE-7 AMB Questionnaire NATE-7 Date NATE - 7 assessed: 02/26/25 Feeling nervous, anxious, or on edge: 0 = Not at all Not being able to stop or control worryin = Not at all Worrying too much about different things: 1 = Several days Trouble relaxin = Not at all Being so restless that it is hard to sit still: 0 = Not at all Becoming easily annoyed or irritable: 0 = Not at all Feeling afraid as if something awful might happen: 0 = Not at all Total NATE-7 score (0-4 normal; 5-9 mild; 10-14 moderate; 15-21 severe): 1 Source: Developed by Drs. Ryan Tavarez, Allen Khoury and colleagues, with an educational davion from [employer]. Review of Systems Const Denies body aches, Denies chills, Denies fever(s), Denies headache(s) and Denies poor appetite Eyes Reports no additional complaints ENT Denies dysphagia, Denies dizziness, Denies headache(s) and Denies odynophagia Card Denies chest pain, Denies syncope, Denies edema, Denies irregular heart rhythm, Denies lightheadedness and Denies dyspnea Resp Denies cough and Denies dyspnea GI Denies abdominal pain, Denies constipation, Denies dysphagia, Denies diarrhea, Denies nausea, Denies odynophagia and Denies vomiting Reports no additional complaints Musc Reports no additional complaints and Denies abnormal gait Skin/Breast Reports system reviewed and no additional complaints, except as documented Neuro Denies abnormal gait, Denies dizziness, Denies syncope and Denies headache(s) Psych Reports no additional complaints Physical exam (Primary Care) Vital Signs: Last Vital Signs Temp 97 F 02/26/25 11:27 Pulse 97 02/26/25 11:27 Resp 18 02/26/25 11:27 BP 130/70 02/26/25 11:27 Pulse Ox 96 02/26/25 11:27 Oxygen Delivery Method Room Air 02/26/25 11:27 BMI result Body Mass Index 34.3 Tobacco/Smoking Status: Tobacco use Status Tobacco use date assessed 02/26/25 02/26/25 11:34 Patient Tobacco Use Status Never used Tobacco 02/26/25 11:34 e-Cigarette/Vaping Use Never Used 02/26/25 11:34 PHQ-9: PHQ-9 Score PHQ-9: Total score 0 02/26/25 11:45 Depression Screening Interpretation: Negative Thrive Assessment: Date of Thrive Assessment Date Thrive assessed 02/26/25 02/26/25 11:34 Currently or been in a relationship where the following occur: No concerns reported Const General: cooperative, healthy appearing, comfortable and no acute distress Orientation/consciousness: patient oriented x3 HENMT Head: Yes normocephalic Ears: hearing grossly normal bilaterally General nose exam: Normal external nose present Eyes General: appearance normal, both eyes and all related structures Conjunctivae: conjunctivae normal Neck Neck: Yes full ROM and Yes no lymphadenopathy Resp Effort & Inspection: normal respiratory effort Auscultation: clear to auscultation bilaterally, no crackles, no rales, no rhonchi and no wheezes Cardio Rate: regular rate Rhythm: regular rhythm Skin General skin exam: no rashes or lesions noted Neuro General: patient oriented x3 Gait exam (Neuro): Normal gait present Extrem General: Yes normal to inspection, Yes full ROM and No edema Psych Affect: normal affect Attitude: cooperative Insight: Good insight present (Psych) Judgement: Good judgement present (Psych) Results Reviewed Results Reviewed: Laboratory Tests 02/19/25 08:08 WBC 9.2 RBC 5.31 Hgb 15.1 Hct 43.5 MCV 81.9 MCH 28.4 MCHC 34.7 RDW 12.2 Plt Count 344 Sodium 137 Potassium 4.1 Chloride 104 Carbon Dioxide 24 Anion Gap 13 BUN 16 Creatinine 0.76 Estimated GFR > 60 Fasting Glucose 138 H Estimat Average Glucose 177 Hemoglobin A1c % 7.8 H Calcium 9.6 Total Bilirubin 0.4 AST 36 ALT 58 H Alkaline Phosphatase 81 Total Protein 7.9 Albumin 4.9 Triglycerides 233 H Cholesterol 159 LDL Cholesterol, Calc 71 HDL Cholesterol 42 25-OH Vitamin D Total 56.4 TSH 2.97 Urine Color Yellow Urine Appearance Clear Urine pH 5.5 Ur Specific Merna 1.020 Urine Protein Negative Urine Glucose (UA) Negative Urine Ketones Negative Urine Blood Negative Urine Nitrite Negative Ur Leukocyte Esterase Negative Coding Level of Care Code Est Pt Level 3 (99084) Diagnoses Mixed hypercholesterolemia and hypertriglyceridemia E78.2 Type 2 diabetes mellitus with other specified complication, without long-term current use of insulin E11.69 Diabetes mellitus type: type 2 Diabetes mellitus assistant terminal manager insulin use: without penitentiary use Diabetes mellitus complication status: with other specified complication Seasonal allergic rhinitis due to pollen J30.1 Allergic rhinitis trigger: pollen Allergic rhinitis seasonality: seasonal Elevated liver enzymes R74.8 Ramos neuroma of both feet G57.63 Time Spent (min) 34 Assessment & Plan Assessment & Plan (1) Mixed hypercholesterolemia and hypertriglyceridemia: Code(s): E78.2 - Mixed hyperlipidemia Category: Medical (2) Diabetes: Code(s): E11.9 - Type 2 diabetes mellitus without complications Category: Medical Qualifiers: Diabetes mellitus type: type 2 Diabetes mellitus penitentiary insulin use: without assistant terminal manager use Diabetes mellitus complication status: with other specified complication Qualified Code(s): E11.69 - Type 2 diabetes mellitus with other specified complication (3) Allergic rhinitis: Code(s): J30.9 - Allergic rhinitis, unspecified Category: Medical Qualifiers: Allergic rhinitis trigger: pollen Allergic rhinitis seasonality: seasonal Qualified Code(s): J30.1 - Allergic rhinitis due to pollen (4) Elevated liver enzymes: Code(s): R74.8 - Abnormal levels of other serum enzymes Category: Medical (5) Ramos neuroma of both feet: Code(s): G57.63 - Lesion of plantar nerve, bilateral lower limbs Category: Medical Plan The patient will continue with metformin for hyperglycemia management, with a focus on maintaining dietary changes such as eliminating juice and soda and increasing water intake. Regular monitoring of fasting glucose levels will be conducted to ensure continued improvement. Jardiance 10 mg daily added to regimen. For the elevated liver enzymes, further laboratory tests will be ordered to monitor the levels, and an abdominal ultrasound may be considered if symptoms develop. The patient is advised to continue dietary modifications to support liver health. The patient is encouraged to follow up with podiatry for further evaluation of joint-related concerns despite the resolution of foot pain with footwear change. Regarding dental health, the patient will proceed with scheduled dental procedures, including deep cleaning and fillings. The patient is advised to avoid pork due to the intolerance causing gastrointestinal symptoms. Patient was informed and verbally consented to the use of an ambient scribe for clinic note documentation during this visit. Orders: Orders Comprehensive [place]. Panel Fast 3 Months E78.2 - Mixed hyperlipidemia, E11.69 - Type 2 diabetes mellitus with other specified complication, J30.1 - Allergic rhinitis due to pollen, R74.8 - Abnormal levels of other serum enzymes Lipid Panel 3 Months E78.2 - Mixed hyperlipidemia, E11.69 - Type 2 diabetes mellitus with other specified complication, J30.1 - Allergic rhinitis due to pollen, R74.8 - Abnormal levels of other serum enzymes TSH reflex Free T4 3 Months E78.2 - Mixed hyperlipidemia, E11.69 - Type 2 diabetes mellitus with other specified complication, J30.1 - Allergic rhinitis due to pollen, R74.8 - Abnormal levels of other serum enzymes Hemoglobin A1c 3 Months E78.2 - Mixed hyperlipidemia, E11.69 - Type 2 diabetes mellitus with other specified complication, J30.1 - Allergic rhinitis due to pollen, R74.8 - Abnormal levels of other serum enzymes Complete Blood Count Auto Diff 3 Months E78.2 - Mixed hyperlipidemia, E11.69 - Type 2 diabetes mellitus with other specified complication, J30.1 - Allergic rhinitis due to pollen, R74.8 - Abnormal levels of other serum enzymes UA CC w/rflx Micro + Cult 3 Months E78.2 - Mixed hyperlipidemia, E11.69 - Type 2 diabetes mellitus with other specified complication, J30.1 - Allergic rhinitis due to pollen, R74.8 - Abnormal levels of other serum enzymes Medications: New empagliflozin (Jardiance) 10 mg PO DAILY 90 tabs 3RF
[2025-02-26 11:27] VITALS: BP 130/70; PULSE 97; RESP 18; TEMP 36.1; O2SAT 96; BMI 34.3
== END 2025-02-26 11:57 | disposition home or self-care (01) ==
LOC: HO.HMCH 11:16
DX: E78.2 Mixed hyperlipidemia (principal); E11.69 Type 2 diabetes mellitus with other specified complication; J30.1 Allergic rhinitis due to pollen; R74.8 Abnormal levels of other serum enzymes; G57.63 Lesion of plantar nerve, bilateral lower limbs

== ENCOUNTER 2025-05-28 07:46 | Outpatient (REF) | payer BC, SELFPAY ==
[2025-05-28 10:36] LABS: MANUAL DIFF FLAG NO
[2025-05-28 10:38] LABS: Appearance Urine Clear; Glucose Urine UA >=1000 mg/dL (Negative); PH 5.5 (5.0-9.0); Specific Gravity - Urine 1.010 (1.005-1.025); UMIC TRIGGER UACC YES
[2025-05-28 10:41] LABS: Hematocrit 48.4 % (42.0-52.0); Hemoglobin 16.3 g/dl (14.0-18.0); Imm Gran Abs Auto 0.02 X10*3/uL (0.00-0.03); Imm Gran Pct Auto 0.3 % (0.0-0.4); Lymphocytes Absolute Auto 3.2 X10*3/uL (1.2-4.9); Mean Corpuscular HGB Conc 33.7 g/dl (31.0-36.0); Mean Corpuscular Hemoglobin 28.2 pg (27.0-33.0); Mean Corpuscular Volume 83.7 fL (80.0-98.0); NRBC Abs Auto 0.000 X10*3/uL (0.0-0.012); NRBC Pct Auto 0.0 /100WBC (0.0-0.2); Platelet Count 325 X10*3/uL (160-400); Red Blood Count 5.78 X10*6/uL (4.60-5.80); White Blood Count 8.0 X10*3/uL (4.8-10.8)
[2025-05-28 11:08] LABS: Alanine Aminotransferase 78 U/L (0-40); Albumin Level 4.9 g/dL (3.5-5.0); Alkaline Phosphatase 64 U/L (39-117); Anion Gap 10 (12-20); Aspartate Amino Transferase 44 U/L (5-37); Blood Urea Nitrogen 17 mg/dL (9-16); Calcium 9.1 mg/dL (8.4-10.2); Carbon Dioxide 27 mmol/L (22-29); Chloride 104 mmol/L (96-108); Cholesterol 200 mg/dL (<200); Estimated Glomerular Filt Rate > 60; HDL Cholesterol 46 mg/dL (>40); Potassium 3.4 mmol/L (3.3-5.1); Sodium 138 mmol/L (135-145); Total Protein 7.7 g/dL (6.5-8.0); Triglycerides 123 mg/dL (<150)
== END 2025-05-28 07:47 | disposition home or self-care (01) ==
LOC: HO.HMGCLDS 07:46
DX: E78.2 Mixed hyperlipidemia (principal); E11.69 Type 2 diabetes mellitus with other specified complication; J30.1 Allergic rhinitis due to pollen; R74.8 Abnormal levels of other serum enzymes
CPT/HCPCS: 36415; 80053; 80061; 81001; 83036; 84443; 85025

== ENCOUNTER 2025-06-04 11:13 | Outpatient (AMB) | payer BC, SELFPAY ==
--- NOTE | 2025-06-04 11:37 | A.OFFPC_ITS ---
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 Accompanied by: Self / Same As Patient Allergies animal dander Allergy (Verified 06/04/25 12:06) Itchy Eyes mite-Dermatophagoides farinae, angie (dust mite - [place]) Allergy (Verified 06/04/25 12:06) Itchy Eyes mold Allergy (Verified 06/04/25 12:06) Itchy Eyes pollen extracts Allergy (Verified 06/04/25 12:06) Itching Pork/Porcine Containing Products Adverse Reaction (Severe, Verified 06/04/25 12:06) Vomiting Medication List - Last Reconciled 06/04/25 by MARSHALL Alvares empagliflozin (Jardiance) 10 mg PO DAILY metformin ER 2,000 mg (4 x 500 mg) PO DAILY 30 days Tobacco use date assessed: 06/04/25 Dental Screening Dental Screen Date: 06/04/25 Did you have a dental visit in the last 12 months?: Yes Did you have a dental problem in the last 6 months where you did not have access to dental care?: No Was dental information given to patient?: Patient has dentist HPI DM/HLD/elevated ALT HPI Details The patient is a 25-year-old male presenting for diabetes and foot pain for follow up His A1c is has been trending in the right direction, in September A1c was 9.4%, in January 7.8%, now in May 7.5%. The patient triglycerides went from 223 to 123, however, total cholesterol went from 159 to 200 due to an increase in LDL from 71 to 130. Liver enzymes increased mildly with the increase of his cholesterol. He reports decreased pain in feet since his blood sugar has been more controlled. [facility] Medical History Geographic tongue Atopic eczema Surgical History No pertinent past surgical history Family History Mother Immune deficiency disorder History of shingles Bunion Father Mental health disorder Suicide FH: mental illness Other Mental illness in member of household Type 2 diabetes mellitus Social History Household Members Other:: Mother Housing: House Alcohol intake: current Alcohol intake frequency: holidays/special occasions only Patient Tobacco Use Status: Never used Tobacco e-Cigarette/Vaping Use: Never Used Second Hand Smoke Exposure: No service: No Current occupational status: employed 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 Depression Screening Interpretation: Negative Depression Screening Done: Yes Source: Developed by Drs. Ryan Tavarez, Agatha Bermudez, Allen Ayon and colleagues, with an educational davion from [employer]. Thrive Questionnaire Date Thrive assessed: 10/04/24 I am a: Patient What is your living situation today?: I have a steady place to live Within the past 12 months, did the food you bought not last and you didn't have the money to get more?: Never true Within the past 12 months, did you worry whether your food would run out before you got money to buy more?: Never true Do you have trouble paying for medicines?: No Do you have trouble getting transportation to medical appointments?: No Do you have trouble paying your heating and electricity bill?: No Do you have trouble taking care of your child, family member or friend?: No Do you have trouble with day-to-day activities such as bathing, preparing meals, shopping, managing finances, etc.?: No Are you currently unemployed and looking for a job?: No Are you interested in more education?: No Please select the resources that you would like help with: None Currently or been in a relationship where the following occur: No concerns reported THRIVE Score: 0 NAET-7 AMB Questionnaire NATE-7 Date NATE - 7 assessed: 02/26/25 Source: Developed by Drs. Ryan Tavarez, Agatha Bermudez, Allen Ayon and colleagues, with an educational davion from [employer]. Review of Systems Const Denies body aches, Denies chills, Denies fever(s), Denies headache(s) and Denies poor appetite Eyes Reports no additional complaints ENT Denies dysphagia, Denies dizziness, Denies headache(s) and Denies odynophagia Card Denies chest pain, Denies syncope, Denies edema, Denies irregular heart rhythm, Denies lightheadedness and Denies dyspnea Resp Denies cough and Denies dyspnea GI Denies abdominal pain, Denies constipation, Denies dysphagia, Denies diarrhea, Denies nausea, Denies odynophagia and Denies vomiting Reports no additional complaints Musc Reports no additional complaints and Denies abnormal gait Skin/Breast Reports system reviewed and no additional complaints, except as documented Neuro Denies abnormal gait, Denies dizziness, Denies syncope and Denies headache(s) Psych Reports no additional complaints Physical exam (Primary Care) Vital Signs: Last Vital Signs Temp 97.5 F 06/04/25 11:38 Pulse 87 06/04/25 11:38 Resp 18 06/04/25 11:38 BP 112/78 06/04/25 11:38 Pulse Ox 99 06/04/25 11:38 Oxygen Delivery Method Room Air 06/04/25 11:38 BMI result Body Mass Index 34.2 Tobacco/Smoking Status: Tobacco use Status Tobacco use date assessed 06/04/25 06/04/25 11:43 Patient Tobacco Use Status Never used Tobacco 06/04/25 11:43 e-Cigarette/Vaping Use Never Used 06/04/25 11:43 Depression Screening Interpretation: Negative Thrive Assessment: Date of Thrive Assessment Date Thrive assessed 10/04/24 06/04/25 11:43 Currently or been in a relationship where the following occur: No concerns reported Const General: cooperative, healthy appearing, comfortable and no acute distress Orientation/consciousness: patient oriented x3 HENMT Head: Yes normocephalic Ears: hearing grossly normal bilaterally General nose exam: Normal external nose present Eyes General: appearance normal, both eyes and all related structures Conjunctivae: conjunctivae normal Neck Neck: Yes full ROM and Yes no lymphadenopathy Resp Effort & Inspection: normal respiratory effort Auscultation: clear to auscultation bilaterally, no crackles, no rales, no rhonchi and no wheezes Cardio Rate: regular rate Rhythm: regular rhythm Skin General skin exam: no rashes or lesions noted Neuro General: patient oriented x3 Gait exam (Neuro): Normal gait present Extrem General: Yes normal to inspection, Yes full ROM and No edema Psych Affect: normal affect Attitude: cooperative Insight: Good insight present (Psych) Judgement: Good judgement present (Psych) Results Reviewed Results Reviewed: Laboratory Tests 05/28/25 05/28/25 07:50 07:55 WBC 8.0 RBC 5.78 Hgb 16.3 Hct 48.4 MCV 83.7 MCH 28.2 MCHC 33.7 RDW 12.3 Plt Count 325 Sodium 138 Potassium 3.4 Chloride 104 Carbon Dioxide 27 Anion Gap 10 L BUN 17 H Creatinine 0.84 Estimated GFR > 60 Fasting Glucose 116 H Estimat Average Glucose 169 Hemoglobin A1c % 7.5 H Calcium 9.1 Total Bilirubin 0.6 AST 44 H ALT 78 H Alkaline Phosphatase 64 Total Protein 7.7 Albumin 4.9 Triglycerides 123 Cholesterol 200 H LDL Cholesterol, Calc 130 H HDL Cholesterol 46 TSH 2.06 Urine Color Yellow Urine Appearance Clear Urine pH 5.5 Ur Specific [place] 1.010 Urine Protein Negative Urine Glucose (UA) >=1000 H Urine Ketones Negative Urine Blood Negative Urine Nitrite Negative Ur Leukocyte Esterase Negative Urine RBC 0-2 Urine WBC 0-5 Ur Squamous Epith Cells 0-2 Urine Bacteria None Seen Hyaline Casts 0-2 Coding Level of Care Code Est Pt Level 3 (73837) Diagnoses Mixed hypercholesterolemia and hypertriglyceridemia E78.2 Type 2 diabetes mellitus with other specified complication, without long-term current use of insulin E11.69 Diabetes mellitus type: type 2 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: without half-way use Diabetes mellitus complication status: with other specified complication Seasonal allergic rhinitis due to pollen J30.1 Allergic rhinitis trigger: pollen Allergic rhinitis seasonality: seasonal Elevated liver enzymes R74.8 Ramos neuroma of both feet G57.63 Time Spent (min) 29 Assessment & Plan Assessment & Plan (1) Mixed hypercholesterolemia and hypertriglyceridemia: Code(s): E78.2 - Mixed hyperlipidemia Category: Medical (2) Diabetes: Code(s): E11.9 - Type 2 diabetes mellitus without complications Category: Medical Qualifiers: Diabetes mellitus type: type 2 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: without half-way use Diabetes mellitus complication status: with other specified complication Qualified Code(s): E11.69 - Type 2 diabetes mellitus with other specified complication (3) Allergic rhinitis: Code(s): J30.9 - Allergic rhinitis, unspecified Category: Medical Qualifiers: Allergic rhinitis trigger: pollen Allergic rhinitis seasonality: seasonal Qualified Code(s): J30.1 - Allergic rhinitis due to pollen (4) Elevated liver enzymes: Code(s): R74.8 - Abnormal levels of other serum enzymes Category: Medical (5) Ramos neuroma of both feet: Code(s): G57.63 - Lesion of plantar nerve, bilateral lower limbs Category: Medical Plan The patient will continue with metformin for hyperglycemia management, with a focus on maintaining dietary changes such as eliminating juice and soda and increasing water intake. Regular monitoring of fasting glucose levels will be conducted to ensure continued improvement. Jardiance increased to 25 mg daily. For the elevated liver enzymes, note to be coinciding with elevated cholesterol, further laboratory tests will be ordered to monitor the levels, and an abdominal ultrasound may be considered if symptoms develop. The patient is advised to continue dietary modifications to support liver health. The patient is encouraged to follow up with podiatry for further evaluation of joint-related concerns despite the resolution of foot pain with footwear change. Regarding dental health, the patient will proceed with scheduled dental procedures, including deep cleaning and fillings. The patient is advised to avoid pork due to the intolerance causing gastrointestinal symptoms. Patient was informed and verbally consented to the use of an ambient scribe for clinic note documentation during this visit. Orders: Orders Lipid Panel 3 Months E11.69 - Type 2 diabetes mellitus with other specified complication, E78.2 - Mixed hyperlipidemia, G57.63 - Lesion of plantar nerve, bilateral lower limbs, R74.8 - Abnormal levels of other serum enzymes TSH reflex Free T4 3 Months E11.69 - Type 2 diabetes mellitus with other specified complication, E78.2 - Mixed hyperlipidemia, G57.63 - Lesion of plantar nerve, bilateral lower limbs, R74.8 - Abnormal levels of other serum enzymes UA CC w/rflx Micro + Cult 3 Months E11.69 - Type 2 diabetes mellitus with other specified complication, E78.2 - Mixed hyperlipidemia, G57.63 - Lesion of plantar nerve, bilateral lower limbs, R74.8 - Abnormal levels of other serum enzymes Hepatitis A,B,C Profile 3 Months R74.8 - Abnormal levels of other serum enzymes Transferrin 3 Months R74.8 - Abnormal levels of other serum enzymes Ceruloplasmin 3 Months R74.8 - Abnormal levels of other serum enzymes Hemoglobin A1c 3 Months E11.69 - Type 2 diabetes mellitus with other specified complication, E78.2 - Mixed hyperlipidemia, G57.63 - Lesion of plantar nerve, bilateral lower limbs, R74.8 - Abnormal levels of other serum enzymes Complete Blood Count Auto Diff 3 Months E11.69 - Type 2 diabetes mellitus with other specified complication, E78.2 - Mixed hyperlipidemia, G57.63 - Lesion of plantar nerve, bilateral lower limbs, R74.8 - Abnormal levels of other serum enzymes Comprehensive [place]. Panel Fast 3 Months E11.69 - Type 2 diabetes mellitus with other specified complication, E78.2 - Mixed hyperlipidemia, G57.63 - Lesion of plantar nerve, bilateral lower limbs, R74.8 - Abnormal levels of other serum enzymes Ferritin 3 Months R74.8 - Abnormal levels of other serum enzymes Medications: New empagliflozin (Jardiance) 25 mg PO DAILY 90 tabs 3RF Discontinued empagliflozin (Jardiance) Discontinued Reason: Duplicate 10 mg PO DAILY 90 tabs 3RF
[2025-06-04 11:38] VITALS: BP 112/78; PULSE 87; RESP 18; TEMP 36.4; O2SAT 99; BMI 34.2
== END 2025-06-04 12:23 | disposition home or self-care (01) ==
LOC: HO.HMCH 11:14
DX: E78.2 Mixed hyperlipidemia (principal); E11.69 Type 2 diabetes mellitus with other specified complication; J30.1 Allergic rhinitis due to pollen; R74.8 Abnormal levels of other serum enzymes; G57.63 Lesion of plantar nerve, bilateral lower limbs